=== PATIENT | male | born 1975 | race Two or more races ===

== ENCOUNTER 2024-03-10 17:57 | Emergency (ER) | payer OTHER ==
[~2024-03-10] VITALS: Ht 180.3 cm; Wt 100.0 kg
[2024-03-10 18:01] VITALS: TEMP 98.2; O2SAT 95
[2024-03-10 19:18] LABS: BASOPHILS % 0.6 % (0.0-2.0); EOSINOPHILS % 2.5 % (0.0-5.0); HEMATOCRIT. 45.6 % (42.0-52.0); HEMOGLOBIN. 15.3 g/dL (14.0-18.0); LYMPHOCYTES % 17.1 % (20.0-50.0); MEAN CORPUSCULAR HEMOGLOBIN 29.6 pg (28.0-32.0); MEAN CORPUSCULAR HGB CONC 33.6 g/dL (31.0-37.0); MEAN CORPUSCULAR VOLUME 88.3 fL (80.0-94.0); MEAN PLATELET VOLUME 8.9 fl (7.4-10.4); MONOCYTES % 9.3 % (2.0-8.0); NEUTROPHILS % 70.5 % (40.0-76.0); PLATELET 253 x1000/uL (130-400); RED BLOOD CELL COUNT 5.17 mill/uL (4.7-6.1); RED CELL DISTRIBUTION WIDTH 15.2 % (11.6-14.6); WHITE BLOOD COUNT 7.9 x1000/uL (4.5-11.0)
[2024-03-10 19:23] LABS: CHLORIDE 104 mEq/L (98-107); POTASSIUM 4.1 mEq/L (3.5-5.1); SODIUM 138 mEq/L (136-145)
[2024-03-10 19:24] LABS: CARBON DIOXIDE 30 mEq/L (21-32)
[2024-03-10] MEDS: IBUPROFEN 400MG TABLET PO ONE (19:24)
[2024-03-10 19:25] LABS: CALCIUM 10.1 mg/dL (8.7-10.4)
[2024-03-10 19:29] LABS: GLUCOSE 87 mg/dL (70-105); UREA NITROGEN BLOOD 12 mg/dL (9-23)
[2024-03-10] MEDS ORDERED: IBUP-2028 PO (19:37)
[2024-03-10 20:21] VITALS: BP 161/98; PULSE 80; RESP 18
== END 2024-03-10 20:19 | disposition home or self-care (01) ==
LOC: ER 17:57
DX: M54.9 Dorsalgia, unspecified (principal); H53.8 Other visual disturbances
CPT/HCPCS: 36415; 80048; 85025; 99283